=== PATIENT | male | born 1965 | race Caucasian/White ===

== ENCOUNTER 2019-11-04 06:51 | Emergency (ER) | payer MEDICAID ==
[~2019-11-04] VITALS: Ht 180.3 cm; Wt 82.0 kg
--- NOTE | 2019-11-04 07:07 | NUR ---
PATIENT BROUGHT BACK FOR CHIEF COMPLAINT OF RECTUM ITCHING, BURNING, AND SCANT BLEEDING. PATIENT ALSO REPORTS RECENT "SWELLING OF LYMPH NODES". PATIENT DENIES RECENT TRAUMA, SOB, CP, N/V. THE PATIENT IS ALERT, ORIENTED, WARM AND DRY. REPORTS HOMLESS FOR PAST 8 YEARS, FROM [place], HERE IS [place] FOR A FEW WEEKS.
[2019-11-04 07:30] VITALS: BP 131/71
--- NOTE | 2019-11-04 07:30 | NUR ---
RAYMOND PINEDA AT BEDSIDE FOR EVALUATION
--- NOTE | 2019-11-04 07:47 | NUR ---
DISCHARGE INSTRUCTIONS REVIEWED
== END 2019-11-04 07:58 | disposition home or self-care (01) ==
LOC: ED 07:44
DX: K64.8 Other hemorrhoids (principal); R11.10 Vomiting, unspecified; F17.200 Nicotine dependence, unspecified, uncomplicated
CPT/HCPCS: 99282